=== PATIENT | male | born 1995 | race Caucasian/White ===

== ENCOUNTER 2024-08-11 13:19 | Emergency (ER) | payer OTHER ==
[~2024-08-11] VITALS: Ht 180.3 cm; Wt 88.9 kg
[~2024-08-11 13:19] MED LIST: NORCO 5-325 TA1 EACH PO
[2024-08-11 13:44] LABS: BASOPHILS 0.6 % (0-2); EOSINOPHILS 0.3 % (0-6); HEMATOCRIT 47.4 % (35.0-50.0); HEMOGLOBIN 16.3 g/dL (12.0-18.0); LYMPHOCYTES 16.8 % (24-44); MCH 32.1 (27-36); MCHC 34.4 g/dl (30-36); MCV 93.1 fl (81-99); MONOCYTES 7.6 % (0-12); NEUTROPHILS 74.7 % (39-80); PLATELET COUNT 387 K/uL (140-440); RBC 5.09 M/ul (4.3-5.7)
[2024-08-11] MEDS ORDERED: LORazepam 2 MG/ML VIAL IV ONE (14:00)
[2024-08-11 14:03] LABS: ALBUMIN 3.9 g/dL (3.4-5.0); ALBUMIN/GLOBULIN RATIO 0.98 (1.1-2.4); ANION GAP 16.4 (7-21); BILIRUBIN, TOTAL 1.2 ng/dL (0.2-1.0); BUN/CREATININE RATIO 8.65 (6.0-28.6); CALCIUM 9.7 mg/dL (8.5-10.1); CREATININE, SERUM 1.04 mg/dL (0.70-1.30); MAGNESIUM 1.9 mg/dL (1.8-2.4); POTASSIUM 3.4 mmol/L (3.5-5.1); PROTEIN, TOTAL 7.9 g/dL (6.4-8.2)
[2024-08-11] MEDS ORDERED: ATIVAN1 MG PO (15:09)
[2024-08-11 15:23] VITALS: BP 137/89
--- NOTE | 2024-08-14 14:26 | EKG ---
[facility] [address] [facility] [place], [place] [address] Signed Normal sinus rhythm Biatrial enlargement Left bundle branch block Abnormal ECG No previous ECGs available Confirmed by Ji Castillo MD ([id number]) on 08/14/2024 2:26:11 PM Electronically Signed By: JI CASTILLO MD 08/14/24 1426 PATIENT NAME: OTTONIEL MUSALety Hansen Electrocardiogram DATE OF : [birth year] PHYSICIAN: JI CASTILLO MD REPORT #: [id number] REPORT IS CONFIDENTIAL AND NOT TO BE RELEASED WITHOUT AUTHORIZATION
== END 2024-08-11 15:26 | disposition home or self-care (01) ==
LOC: ED 13:19
PROVIDERS: Emergency Medicine
DX: F41.9 Anxiety disorder, unspecified (principal); M62.50 Muscle wasting and atrophy, not elsewhere classified, unspecified site; F17.200 Nicotine dependence, unspecified, uncomplicated; Z95.0 Presence of cardiac pacemaker; Z88.7 Allergy status to serum and vaccine
CPT/HCPCS: 36415; 71045; 80053; 83735; 84484; 85025; 93005; 93010; 99285-25; J2060